=== PATIENT | female | born 1990 | race Caucasian/White ===

== ENCOUNTER 2017-03-23 10:09 | Day surgery (SDC) | payer OTHER ==
[2017-03-23] VITALS (8 sets, daily range): BP systolic 105–125; BP diastolic 55–91; PULSE 72–105; TEMP 98.1–98.2
[~2017-03-23] VITALS: Ht 177.8 cm; Wt 91.4 kg
[2017-03-23] MEDS ORDERED: SPRINTEC 35 MCG1 TAB PO (10:10)
[2017-03-23] MEDS ORDERED: SYNTHROID0.125 MG/T PO (10:11)
[2017-03-23] MEDS ORDERED: PRILOSEC 20MG20 MG PO (10:11)
[2017-03-23] MEDS ORDERED: ATIVAN 1MG T1 MG/TAB PO (10:12)
[2017-03-23] MEDS ORDERED: PROZAC 20MG20 MG PO (10:52)
[2017-03-23] MEDS ORDERED: BENTYL 10MG10 MG/CAP PO (10:52)
[2017-03-23] MEDS ORDERED: PERCOCET 325 MG1 TA3 PO (12:55)
[2017-03-23] MEDS ORDERED: COLACE 100100 MG/CAP PO (12:55)
[2017-03-23] MEDS ORDERED: MOTRIN 800800 MG/TAB PO (12:55)
[2017-03-23] MEDS ORDERED: ZOFRAN ODT4 MG PO (12:56)
== END 2017-03-23 16:08 | disposition home or self-care (01) ==
LOC: SDCO 10:09
DX: K81.1 Chronic cholecystitis (principal); K82.8 Other specified diseases of gallbladder; K21.9 Gastro-esophageal reflux disease without esophagitis; K58.9 Irritable bowel syndrome, unspecified; F17.210 Nicotine dependence, cigarettes, uncomplicated; E03.9 Hypothyroidism, unspecified; Z90.721 Acquired absence of ovaries, unilateral; Z83.3 Family history of diabetes mellitus
CPT/HCPCS: J0694; J1100; J1170; J1885; J2405; J2550; J2704; J3010; J7120; Q9967